=== PATIENT | female | born 1950 | race Caucasian/White ===

== ENCOUNTER → 2017-09-03 17:32 | Outpatient (CLI) | payer OTHER, SELFPAY | PROVIDERS: Visit Provider Otolaryngology Otolaryngology/Facial Plastic Surgery | DX: J32.9 Chronic sinusitis, unspecified (principal) | CPT/HCPCS: 87070; 87077; 87205 ==

== ENCOUNTER → 2017-09-25 09:00 | Outpatient (CLI) | payer OTHER, SELFPAY ==
--- NOTE | 2017-09-25 09:05 | CT_ITS ---
STUDY: CT MAXILLOFACIAL SINUSES REASON FOR EXAM: Female, 66 years old. Sinusitis. Pressure and drainage. RADIATION DOSAGE (If Supplied By Facility): CTDIvol = ( 29.38 ) mGy, DLP = ( 393.19 ) mGycm TECHNIQUE: The patient was scanned in a multi detector CT scanner. High resolution axial imaging was performed without the administration of intravenous contrast material. Sagittal and coronal images were reconstructed. Individualized dose optimization techniques were used for this CT. COMPARISON: None. FINDINGS: FRONTAL SINUSES: Mucosal thickening of the inferior right frontal sinus extending to the frontal recess. ETHMOIDAL SINUSES: Mild ethmoid opacification.. MAXILLARY SINUSES: Mild mucosal thickening. SPHENOIDAL SINUSES: Normal aeration, without mucosal inflammatory disease. There is narrowing of the ostium of the right ostiomeatal unit. Left ostiomeatal unit is patent.. Normal bilateral middle turbinates. There is hypertrophy of the bilateral inferior nasal turbinates. There is sinuous deviation of the nasal septum. There is narrowing of the bilateral nasal airways. The visualized osseous structures are normal. The visualized bilateral orbital contents are normal. CT/Sinus/Facial Bone IMPRESSION: Mucosal thickening of the frontal, ethmoid, maxillary sinuses. Narrowing of the right ostiomeatal unit. Nasal septal deviation. Mucous hypertrophy of the turbinates narrowing the nasal air passageway. Electronically Signed: Maikol Nguyen MD at 9:50 EDT , Service support ,
== END ==
PROVIDERS: Family Provider Family Medicine; PCP Family Medicine; Visit Provider Otolaryngology Otolaryngology/Facial Plastic Surgery
DX: J32.9 Chronic sinusitis, unspecified (principal)
CPT/HCPCS: 70486

== ENCOUNTER 2024-06-29 09:01 | Day surgery (SDC) | payer MEDICARE, SELFPAY ==
[2024-06-29] VITALS (8 sets, daily range): BP systolic 98–142; BP diastolic 57–78; PULSE 60–78; RESP 16; TEMP 36.1–37; O2SAT 95–98; BMI 34.7
--- NOTE | 2024-06-29 09:17 | HP.PCM_ITS ---
HPI - General General Date of Admission: 06/29/24 Date of Service: 06/29/24 Chief Complaint: Screening colonoscopy HPI Narrative BETTE ROWE, is a 73 F who presents today for screening colonoscopy. She had a colonoscopy Doximity 10 years ago that was normal. She has past medical history of hypercholesterolemia which is controlled medications. FORMERLY [facility] Medical History History of steroid therapy Osteoarthritis Arthritis History of renal disease High cholesterol Sciatic nerve pain Gastric reflux Non-smoker Leg cramps History of edema Pneumonia (~2020) Hyperlipidemia CKD (chronic kidney disease) Home Medications ?Medication ?Instructions ?Recorded ?Last Taken ?Type carboxymethylcellulose sodium 0.5 15 ml OP 4X/DAY 02/28 07/14 Unknown History % eye drops (Lubricant Eye Drops) cyclosporine 0.05 % eye drops in a 1 drp BID 03/11/14 Unknown History dropperette (Restasis) hydroxychloroquine 200 mg tablet 200 mg PO BIDCM 03/11 Unknown History loteprednol etabonate 0.5 % eye 1 drp TID 03/11/14 Unk nown History drops,suspension (Lotemax) atorvastatin 20 mg tablet 20 mg PO QHS 04/25/24 Unknow n History [id number]-[id number]-fish oil-vit D3 300 1 cap PO DAILY Unknown History mg-1,000 mg-1,000 unit capsule (Fish Oil-Vit D3) baclofen 5 mg tablet 5 mg PO TID PRN PRN SCIATIC PAIN 06/28/24 Unknown History Allergy/AdvReac Type Severity Reaction Status Date / Time codeine Allergy hallucinati Verified 06/28/24 08:33 ons naproxen Allergy Other Verified 06/28/24 08:33 Family History Sister Crohn disease Surgical History Hx of LASIK History of tonsillectomy History of cholecystectomy History of hysterectomy Hx of colonoscopy Social History household members: spouse current occupational status: retired Smoking Status: Never smoker alcohol intake: never substance use type: does not use ROS Constitutional Constitutional: Denies fatigue, fever(s), poor appetite, weight gain or weight loss Gastrointestinal Gastrointestinal: Denies belching, bloating, change in bowel habits, change in stool character, chewing difficulty, coffee ground emesis, constipation, cramping, diarrhea, dyspepsia, dysphagia, early satiety, excessive flatus, fecal incontinence, heartburn, hematemesis, hematochezia, hemorrhoids, loose stools, melena, nausea, odynophagia, rectal bleeding, tenesmus, vomiting or weight changes Physical Exam Const alert, oriented x3, no apparent distress and healthy appearing General Appearance: cooperative GI normal to inspection, nondistended, normoactive bowel sounds, soft to palpation, non-tender and non-distended Percussion: normal to percussion Rectal Exam: deferred Assessment & Plan Assessment/Plan (1) Encounter for screening for malignant neoplasm of colon: PLAN: She was explained alternatives, benefits, risk including and not with standing bleeding, infection, sepsis, perforation, need for emergent surgery and . She have an ASA of 3.
--- NOTE | 2024-06-29 10:09 | PRE.ANES_ITS ---
ASA Classification* ASA Classification ASA Classification: 2 Assessment & Plan Anesthesia* Anesthesia Assessment Anesthesia Assessment: Discussed sedation and/or anesthesia options, risks, benefits, and alternatives with patient/parents/legal guardian/POA. Questions invited. The patient/parents/legal guardian/POA seems to understand and agrees to proceed with anesthesia plan. Reviewed the physical assessment, medical history, allergy history and patient home medications list prior to surgery/procedure/anesthetic and documented any changes. Performed airway and anesthesia risk assessments. Anesthesia Type Anesthesia Type: MAC History Source History Obtained from:: Patient and Chart Anesthesia Focused Assessment* Temperature: 98.6 F Pulse Rate: 78 Blood Pressure: 142/78 Respiratory Rate: 16 Pulse Ox: 98 Oxygen Delivery Method: Room Air Airway Assessment Mouth opens: >3 cm Mallampati Score: IV Teeth Condition: Caps/Crowns (There is a cap on Lower Left Molar. It is tight.) Neck Range of motion (ROM): Full ROM Focused Labs Anesthesia Preop lab: CBC WBC 7.4 K/mm3 (4.4-11.0) 03/28/12 15:10 03/28/12 RBC 4.28 M/mm3 (4.2-5.4) 03/28/12 15:10 03/28/12 Hgb 13.1 g.dL (12.0-15.0) 03/28/12 15:10 03/28/12 Hct 39.1 % (37-47) 03/28/12 15:10 03/28/12 Plt Count 258 K/mm3 (150-450) 03/28/12 15:10 03/28/12 CHEMISTRY Potassium 3.9 mmol/L (3.5-5.1) 03/28/12 15:10 03/28/12 Sodium 140 mmol/L (136-145) 03/28/12 15:10 03/28/12 BUN 23 mg/dL (7-18) H 03/28/12 15:10 03/28/12 Creatinine 1.0 mg/dL (0.6-1.0) 03/28/12 15:10 03/28/12 Glucose 110 mg/dL (70-110) 03/28/12 15:10 03/28/12 COAG Pre-Assessment Diagnosis/Proposed Procedure Planned Operative Procedure(s): COLONOSCOPY Anesthesia History Anesthesia History - administrative services manager: Anesthesia History - administrative services manager Hx Hospitalization No 06/28/24 08:36 Any Problems With Anesthesia No 06/28/24 08:36 Cholinesterase deficiency No 06/28/24 08:36 You/Your Family Experience No 06/28/24 08:36 fever (hyperthermia) with Relationship Recent Exposure to Contagious No 06/29/24 09:32 Disease Does patient have nerve No 06/28/24 08:36 stimulator Patient instructed to have device shut off --Does patient have Pacemaker No 06/29/24 09:32 or ICD? When Was Last Pacemaker Check QUESTION #4 FULL TEXT: You/Your Family Experience fever (hyperthermia) with Anesthesia Last Oral Intake Last Oral intake: Last Oral Intake NPO since 06:30 06/29/24 09:32 Meds taken in AM with sips of No 06/29/24 09:32 water? Meds patient instructed to take am of surgery Any additional information?: Yes NPO since: 06:30 (Patient finished her prep at 6:30 AM.) PONV PONV - administrative services manager: PONV - administrative services manager Female Yes 06/28/24 08:36 HX of Motion Sickness No 06/28/24 08:36 HX of N/V After Surgery No 06/28/24 08:36 Non-Smoker Yes 06/28/24 08:36 Duration of Surgery greater No 06/28/24 08:36 than 60 minutes Number of Risk Factors 2 06/28/24 08:36 PONV Score Moderate Risk 06/28/24 08:36 Height & Weight Height & Weight: Anesthesia: Height & Weight Height 5 ft 1 in 06/29/24 09:32 Weight: 83.3 kg 06/29/24 09:32 Body Mass Index (BMI) 34.7 06/29/24 09:32 Respiratory Assessment Respiratory Assessment - administrative services manager: Respiratory Tract Infection Hx - administrative services manager Hx Respiratory Tract Infection No 06/28/24 08:36 STOP Sleep Apnea STOP Sleep Apnea - administrative services manager: STOP Sleep Apnea - administrative services manager Hx Hypertension No 06/28/24 08:36 Hx Sleep Apnea No 06/28/24 08:36 CPAP BIPAP Do you snore loudly (louder No 06/28/24 08:36 than talking or can be heard Do you often feel tired/ No 06/28/24 08:36 fatigued/ sleepy during daytime? Has anyone observed you stop No 06/28/24 08:36 breathing during sleep? STOP Results Negative 06/28/24 08:36 QUESTION #5 FULL TEXT : Do you snore loudly (louder than talking or can be heard through closed doors)? Tobacco Use History Tobacco Use History - administrative services manager: Tobacco Use History - administrative services manager Tobacco Use Smoking Status Never smoker 06/28/24 08:36 Hx Tobacco Use No 06/28/24 08:36 Years Smoking Packs Smoked per Day Smoking Cessation Date was within the last 15 years Hx Smoking Cessation Date Hx Smoking Cessation Counseling Hematologic Medial History Hematologic Hx - administrative services manager: Hematologic Medical Hx - ring packer Hx of Blood Transfusion No 06/28/24 08:36 Hx of Transfusion in last 3 No 06/28/24 08:36 Months Date of Last Transfusion (if within last 3 months) Ever experience any problems No 06/28/24 08:36 with transfusion(s)? Specify any problems Hx of Preganancy in last 3 N/A 06/28/24 08:36 Months Nurse Filling Out Transfusion NBUCHER 06/28/24 08:36 & Questions: Date: 06/28/24 06/28/24 08:36 Time: 08:40 06/28/24 08:36 Patient unable to answer at this time (ie. confused, unrespo /Reproduction History /Reproductive History - administrative services manager: /Reproductive Hx- administrative services manager Hx Now No 06/28/24 08:36 Gestational Age (in weeks): EDC: Hx Hx Para Hx Section SAB No 06/28/24 08:36 [facility] Medical History History of steroid therapy Osteoarthritis Arthritis History of renal disease High cholesterol Sciatic nerve pain Gastric reflux Non-smoker Leg cramps History of edema Pneumonia (~2020) Hyperlipidemia CKD (chronic kidney disease) Home Medications ?Medication ?Instructions ?Recorded ?Last Taken ?Type carboxymethylcellulose sodium 0.5 15 ml OP 4X/DAY 02/28 07/14 Unknown History % eye drops (Lubricant Eye Drops) cyclosporine 0.05 % eye drops in a 1 drp BID 03/11/14 Unknown History dropperette (Restasis) hydroxychloroquine 200 mg tablet 200 mg PO BIDCM 03/11 Unknown History loteprednol etabonate 0.5 % eye 1 drp TID 03/11/14 Unk nown History drops,suspension (Lotemax) atorvastatin 20 mg tablet 20 mg PO QHS 04/25/24 Unknow n History my-6-ilw-epa-fish oil-vit D3 300 1 cap PO DAILY Unknown History mg-1,000 mg-1,000 unit capsule (Fish Oil-Vit D3) baclofen 5 mg tablet 5 mg PO TID PRN PRN SCIATIC PAIN 06/28/24 Unknown History Allergy/AdvReac Type Severity Reaction Status Date / Time codeine Allergy hallucinati Verified 06/29/24 09:32 ons naproxen Allergy Other Verified 06/29/24 09:32 Family History Sister Crohn disease Surgical History Hx of LASIK History of tonsillectomy History of cholecystectomy History of hysterectomy Hx of colonoscopy Social History household members: spouse current occupational status: retired Smoking Status: Never smoker alcohol intake: never substance use type: does not use Review of Systems (Anesthesia) ROS Narrative System reviewed and no additional complaints, except as documented.
--- NOTE | 2024-06-29 10:15 | COLBX_PTH ---
PATIENT: BETTE ROWE LOC: EN U#:[id number] AGE/SX: 73/F ROOM: RE06/29/[address]: Dr. Bryson Rueda DO : 1950 BED: DIS: 06/29/2024 SPEC #: [id number] RECD: 06/29/24 14:45 STATUS: CATHIE FLEMING #: [id number] JOSE: 06/29/24 10:[address]: Bryson Rueda DEPT: SURGICAL PATHOLOGY RECD BY: Nikhil Oneil ENTERED: 06/30/24 08:42 SP TYPE: COLON BX OTHR DR: Dr. Antonio Singh MD Tissues: A - Ileum, NOS B - COLON BIOPSY Procedures: Surgery Specimen Level IV HEADER OPERATION: Colonoscopy with biopsy PRE-OP DIAGNOSIS: Encounter for screening for malignant neoplasm of colon TISSUE SUBMITTED: A- Terminal ileum biopsy, B- Random colon biopsy MICROSCOPIC DIAGNOSIS A. Terminal ileum, biopsy: Fragments of small intestinal mucosa, no pathologic diagnosis. B. Colon, random biopsy: Fragments of colonic mucosa, no pathologic diagnosis. 07/03/2024 MICROSCOPIC DESCRIPTION Slides are reviewed. GROSS DESCRIPTION A. Received in fixative is one container labeled with the patient's name and designated Terminal ileum biopsy. The specimen consists of two irregular fragments of light bradshaw soft tissue that in aggregate measure 0.5 x 0.3 x 0.1 cm. The specimen is totally submitted in one cassette. B. Received in fixative is one container labeled with the patient's name and designated Random colon biopsy. The specimen consists of one irregular fragment of light bradshaw soft tissue that measures 0.6 x 0.4 x 0.1 cm. The specimen is totally submitted in one cassette. 06/30/2024 TC:4 CPT:52217k4
--- NOTE | 2024-06-29 11:33 | PCM.POST.ANE ---
Anesthesia: Postop Eval I Current Vital Signs Temperature: 97.5 F Pulse Rate: 71 Blood Pressure: 98/57 Respiratory Rate: 16 Pulse Ox: 96 Oxygen Delivery Method: Room Air Assessment Airway patent: Yes Spontaneous unlabored respirations: Yes Mental status: Awake and Calm nausea: No Vomiting: No Anesthesia Complication: No Fluid Hydration Crystalloid volume administer (ml): 40 Total IV fluid infused: 40 Progress Note Anesthesia document: Postop Eval 1 completed: Yes
--- NOTE | 2024-06-29 11:46 | OP.COLON_ITS ---
Patient Name: Randa Luna Procedure Date: 06/29/2024 10:44 AM Date of : 1950 Age: 73 Procedure: Colonoscopy Indications: Screening for colorectal malignant neoplasm Providers: Bryson Rueda DO Referring MD: Antonio Singh Medicines: Monitored Anesthesia Care Patient Profile: This is a 73 year old female. Refer to note in patient chart for documentation of history and physical. Last Colonoscopy: 10 years ago. Complications: No immediate complications. Procedure: Pre-Anesthesia Assessment: - Prior to the procedure, a History and Physical was performed, and patient medications and allergies were reviewed. The patient is competent. The risks and benefits of the procedure and the sedation options and risks were discussed with the patient. All questions were answered and informed consent was obtained. Patient identification and proposed procedure were verified by the physician in the pre-procedure area. Mental Status Examination: alert and oriented. Airway Examination: normal oropharyngeal airway and neck mobility. Respiratory Examination: clear to auscultation. CV Examination: normal. Prophylactic Antibiotics: The patient does not require prophylactic antibiotics. Prior Anticoagulants: The patient has taken no anticoagulant or antiplatelet agents. ASA Grade Assessment: II - A patient with mild systemic disease. After reviewing the risks and benefits, the patient was deemed in satisfactory condition to undergo the procedure. The anesthesia plan was to use monitored anesthesia care (MAC). Immediately prior to administration of medications, the patient was re-assessed for adequacy to receive sedatives. The heart rate, respiratory rate, oxygen saturations, blood pressure, adequacy of pulmonary ventilation, and response to care were monitored throughout the procedure. The physical status of the patient was re-assessed after the procedure. After I obtained informed consent, the scope was passed under direct vision. Throughout the procedure, the patient's blood pressure, pulse, and oxygen saturations were monitored continuously. The pediatric colonoscope was introduced through the anus and advanced to the cecum, identified by appendiceal orifice and ileocecal valve. The colonoscopy was performed without difficulty. The patient tolerated the procedure well. The quality of the bowel preparation was adequate. The ileocecal valve, appendiceal orifice, and rectum were photographed. Scope In: 10:59:34 AM Scope Withdrawal Time 0 hours 6 minutes 29 seconds Scope Out: 11:13:27 AM Total Procedure Duration Time 0 hours 13 minutes 53 seconds Findings: The perianal and digital rectal examinations were normal. A few small-mouthed diverticula were found in the recto-sigmoid colon and sigmoid colon. The terminal ileum appeared normal. Biopsies were taken with a cold forceps for histology. Verification of patient identification for the specimen was done. Estimated blood loss was minimal. Impression: - Diverticulosis in the recto-sigmoid colon and in the sigmoid colon. - The examined portion of the ileum was normal. - No specimens collected. Recommendation: - Discharge patient to home. - Resume previous diet. - Continue present medications. - Await pathology results. - Repeat colonoscopy in 5 years for surveillance. Procedure Code(s): --- Professional --- 52047, Colonoscopy, flexible; with biopsy, single or multiple CPT copyright 2021 [employer]. All rights reserved. The codes documented in this report are preliminary and upon casino surveillance officer review may be revised to meet current compliance requirements. Bryson Rueda DO 06/29/2024 11:46:28 AM This report has been signed electronically. Number of Addenda: 0 Note Initiated On: 06/29/2024 10:44 AM
--- NOTE | 2024-06-29 11:46 | OP.CCLET_ITS ---
06/29/2024 Antonio Singh [address] [facility] [address] [place] [place] [id number] Re : Colonoscopy procedure for Randa Luna Dear Dr. Singh This procedure was performed on May. My impressions and recommendations are as follows: Impressions : - Diverticulosis in the recto-sigmoid colon and in the sigmoid colon. - The examined portion of the ileum was normal. - No specimens collected. Recommendations : - Discharge patient to home. - Resume previous diet. - Continue present medications. - Await pathology results. - Repeat colonoscopy in 5 years for surveillance. My findings are described in the full procedure note, which is enclosed. If I can be of further assistance, please feel free to contact me at . Sincerely, Bryson Rueda, 06/29/2024 11:46:28 AM This report has been signed electronically.
--- NOTE | 2024-06-29 11:47 | PCM.POSTANE2 ---
Anesthesia Postop Eval I Sum Postop Eval Completion status Anesthesia document: Postop Eval 1 completed: Yes Anesthesia Postop Eval I Summary Anesthesia Postop Eval I Summary: Anesthesia Postop Eval I: Assessment Summary Airway patent Yes 06/29/24 11:34 [email or web address] Spontaneous unlabored Yes 06/29/24 11:34 [email or web address] respirations Mental status Awake,Calm 06/29/24 11:34 [email or web address] nausea No 06/29/24 11:34 [email or web address] Vomiting No 06/29/24 11:34 [email or web address] Anesthesia Postop Eval I: Fluid Summary Crystalloid volume administer 40 06/29/24 11:34 [email or web address] (ml) Colloids volume administered ( ml) Blood Product volume administered (ml) Total IV fluid infused 40 06/29/24 11:34 [email or web address] Anesthesia Postop Eval I: Summary Notes Anesthesia Complication No 06/29/24 11:34 [email or web address] Anesthesia Complication Comment: Post-operative progress note Anesthesia: Postop Eval II Evaluation Mental status: Awake and Calm Pain Level: 0 nausea: No Vomiting: No Complications Anesthesia Complication: No
== END 2024-06-29 12:20 | disposition home or self-care (01) ==
LOC: EN 09:03 → AC 09:05
PROVIDERS: PCP Family Medicine; Referring Provider Family Medicine; Visit Provider Internal Medicine Gastroenterology
PROC: 0DJD8ZZ Inspection of Lower Intestinal Tract, Via Natural or Artificial Opening Endoscopic (ICD-10-PCS; CPT 45378; principal; 2024-06-29 10:10)
DX: Z12.11 Encounter for screening for malignant neoplasm of colon (principal); K57.30 Diverticulosis of large intestine without perforation or abscess without bleeding; K21.9 Gastro-esophageal reflux disease without esophagitis; E78.00 Pure hypercholesterolemia, unspecified; M19.90 Unspecified osteoarthritis, unspecified site; Z90.49 Acquired absence of other specified parts of digestive tract; Z79.899 Other long term (current) drug therapy
CPT/HCPCS: 45380; 88305; A4216; J2405

== ENCOUNTER → 2024-11-03 | Outpatient (CLI) | payer MEDICARE, SELFPAY ==
--- NOTE | 2024-11-03 10:53 | VDLE_ITS ---
Reason For Study Reason For Study: Pain RIGHT LEFT GSV is normal. GSV is normal. CFV is compressible, spontaneous, phasic, competent CFV is compressible, spontaneous, phasic, competent, and demonstrates normal augmentation. and demonstrates normal augmentation. FV is compressible, spontaneous, phasic, competent FV is compressible, spontaneous, phasic, competent and demonstrates normal augmentation. and demonstrates normal augmentation. POP V is compressible, spontaneous, phasic, competent POP V is compressible, spontaneous, phasic, competent and demonstrates normal augmentation. and demonstrates normal augmentation. T/P Trunk is compressible. T/P Trunk is compressible. PTV is compressible. PTV is compressible. RT PerV is compressible. LT PerV is compressible. Procedure This is a venous duplex using B-mode, color flow and spectral Doppler. Exam performed in department. VL/Venous Duplex US - Jevon Extrem Interpretation Summary Deep veins of the bilateral lower extremities are patent and compressible segme ntally. There is no evidence of bilateral lower extremity deep vein thrombosis. The bilateral great saphenous veins appea r patent and compressible segmentally. Ordering Physician: Antonio Singh Referring Physician: Antonio Singh Performed By: Mya Harris, BRIDGETTT
--- NOTE | 2024-11-03 10:55 | ECHOD_ITS ---
Reason For Study Reason For Study: NEWLY RECOGNIZED HEART MURMUR Procedure This was a 2D Doppler, Color Flow transthoracic echocardiogram. Exam performed in department. Left Ventricle Normal LV size. The estimated ejection fraction is 55 %. No evidence for diastolic dysfunction. No regional wall motion abnormalities noted. Right Ventricle Normal RV size. Normal systolic function. Atria The left and right atria are normal. No doppler evidence for ASD. Mitral Valve There is mild mitral annular calcification. There is no stenosis. Mild (1+) mitral valve insufficiency. Tricuspid Valve There is no tricuspid stenosis. Trivial tricuspid valve insufficiency. Pulmonary artery systolic pressure is 30 mmHg. Aortic Valve Trisinus/trileaflet aortic valve. There is no aortic stenosis. Trivial aortic valve insufficiency. Pulmonic Valve There is no pulmonic valvular stenosis. Trivial pulmonic valve insufficiency. Great Vessels Normal sized aortic root. Pericardium/Pleural No pericardial effusion. MMode/2D Measurements & Calculations LVIDd: 4.3 cm IVSd: 0.91 cm Ao root diam: 2.9 cm LVIDs: 2.8 cm LVPWd: 1.0 cm RVDd: 3.0 cm FS: 35.8 % LAV(MOD-bp): 33.4 ml LVAd ap4: 26.0 cm2 LVAd ap2: 25.8 cm2 LAV(MOD-bp) Indexed: 18.3 ml/m2 LVLd ap4: 7.3 cm LVLd ap2: 7.4 cm LAV(MOD-sp2): 35.3 ml EDV(MOD-sp4): 76.4 ml EDV(MOD-sp2): 74.7 ml LAV(MOD-sp4): 24.7 ml EDV(sp4-el): 78.4 ml EDV(sp2-el): 76.5 ml LVAs ap4: 14.1 cm2 LVAs ap2: 13.4 cm2 LVLs ap4: 5.7 cm LVLs ap2: 5.4 cm ESV(MOD-sp4): 30.4 ml ESV(MOD-sp2): 27.9 ml ESV(sp4-el): 29.5 ml ESV(sp2-el): 28.0 ml EF(MOD-sp4): 60.2 % EF(MOD-sp2): 62.6 % EF(sp4-el): 62.4 % SV(MOD-sp4): 46.0 ml SV(MOD-sp2): 46.8 ml SV(sp4-el): 48.9 ml SI(MOD-sp4): 25.1 ml/m2 SI(MOD-sp2): 25.6 ml/m2 LA A4 area: 10.4 cm2 LA dimension(2D): 3.4 cm RA A4 area: 12.9 cm2 TAPSE: 2.2 cm Time Measurements MV dec time: 0.17 sec Doppler Measurements & Calculations MV E max siva: 89.2 cm/sec Lat Peak E' Siva: 8.0 cm/sec Med Peak E' Siva: 5.9 cm/sec MV A max siva: 105.0 cm/sec E/E' lat: 11.1 E/E' med: 15.0 MV E/A: 0.85 MV V2 max: 141.5 cm/sec MV P1/2t max siva: 117.3 cm/sec Ao V2 max: 117.0 cm/sec MV max P.0 mmHg MV P1/2t: 53.9 msec Ao max P.5 mmHg MV V2 mean: 70.6 cm/sec Ao V2 mean: 84.5 cm/sec MV mean P.4 mmHg MV dec slope: 637.7 cm/sec2 Ao mean P.2 mmHg MV V2 VTI: 33.8 cm MVA(P1/2t): 4.1 cm2 Ao V2 VTI: 30.1 cm AV (velocity ratio): 0.81 LV V1 max: 96.6 cm/sec PA V2 max: 83.3 cm/sec TR max siva: 250.2 cm/sec LV V1 max P.7 mmHg PA V2 mean: 63.4 cm/sec TR max P.0 mmHg LV V1 mean P.0 mmHg LV V1 mean: 67.5 cm/sec LV V1 VTI: 24.4 cm ECHO/Echo Complete Interpretation Summary The estimated ejection fraction is 55 %. No evidence for diastolic dysfunction. Mild (1+) mitral valve insufficiency. Trivial aortic valve insufficiency. Ordering Physician: Antonio Singh Referring Physician: Anotnio Singh Performed By: Nallely Vanessa, RDCS, RVT
== END | disposition home or self-care (01) ==
LOC: CVS 10:40
PROVIDERS: PCP Family Medicine; Referring Provider Family Medicine; Visit Provider Family Medicine
DX: R01.1 Cardiac murmur, unspecified (principal); M79.604 Pain in right leg; M79.605 Pain in left leg
CPT/HCPCS: 93306; 93970